=== PATIENT | male | born 1970 | race Caucasian/White ===

== ENCOUNTER 2022-03-28 08:26 | Emergency (ER) | payer BC ==
[~2022-03-28] VITALS: Ht 177.8 cm; Wt 111.1 kg
[2022-03-28] MEDS ORDERED: SODIUM CHLORIDE 0.9% 1000ML 1,000 ML STA (08:45)
[2022-03-28] MEDS ORDERED: Morphine 4mg INJECTION 4 MG/ML INJ IV ONE (08:45)
[2022-03-28] MEDS ORDERED: ONDANSETRON HCL INJ 2MG/ML 2ML 2 MG/ML VIAL IV ONE (08:45)
[2022-03-28] MEDS ORDERED: SODIUM CHLORIDE 0.9% 1000ML 1,000 ML ONE (09:20)
[2022-03-28] MEDS ORDERED: IOPAMIDOL 370 MG/ML 100 ML INFUS..BTL INJ ONE (09:27)
[2022-03-28] MEDS ORDERED: ULTRAM 50MG50 MG PO (11:08)
[2022-03-28 11:17] VITALS: BP 132/74
== END 2022-03-28 11:20 | disposition home or self-care (01) ==
LOC: FSED 08:31
DX: R10.11 Right upper quadrant pain (principal); K82.8 Other specified diseases of gallbladder; E11.65 Type 2 diabetes mellitus with hyperglycemia; I10 Essential (primary) hypertension; K76.9 Liver disease, unspecified; I48.91 Unspecified atrial fibrillation; Z85.828 Personal history of other malignant neoplasm of skin
CPT/HCPCS: 74177; 76705; 80048; 80076; 81003; 85025; 96374; 96376; 99284; J2270; J2405; J7030; Q9967